=== PATIENT | male | born 1975 | race Caucasian/White ===

== ENCOUNTER 2020-08-11 21:25 | Emergency (ER) | payer SELFPAY ==
[2020-08-11 21:39] VITALS: BP 145/83
[2020-08-11] MEDS ORDERED: SULFAMETH/TRIMETH DS 800/160 MG TABLET PO STA (21:49)
[2020-08-11] MEDS ORDERED: BUFFERED LIDOCAINE 10 ML SYRINGE SUBQ STA (21:49)
[2020-08-11] MEDS ORDERED: CEPHALEXIN 250 MG Prepack 8 CAP BOTTLE PO STA (21:49)
--- NOTE | 2020-08-11 21:50 | ED Physician Documentation ---
PD HPI SKIN - Stated complaint Stated Complaint: LT SHOULDER SPIDER BITE - Chief complaint Chief Complaint: Wound - History obtained from History obtained from: Patient - Additional information Additional information: He developed what he thinks is a spider bite on the left arm last night and a lot of fluid came out when he was squeezing it. He describes it is green and white and red. And there is significant surrounding redness. No history of MRSA. No fevers. Review of Systems Constitutional: denies: Fever, Chills Nose: reports: Reviewed and negative Throat: reports: Reviewed and negative Cardiac: reports: Reviewed and negative PD PAST MEDICAL HISTORY - Present Medications Home Medications: Ambulatory Orders Medication Instructions Recorded Confirmed Cephalexin [Keflex] 500 mg PO Q6H #40 capsule 08/11/20 Sulfamethox/Trimeth 800/160 1 each PO BID #20 tablet 08/11/20 [Bactrim Ds 800/160] - Allergies Allergies/Adverse Reactions: Allergies Allergy/AdvReac Type Severity Reaction Status Date / Time No Known Drug Allergies Allergy Verified 08/11/20 21:38 PD ED PE NORMAL - Vitals Vital signs reviewed: Yes - General General: Alert and oriented X 3, No acute distress - HEENT HEENT: PERRL, EOMI - Neck Neck: Supple, no meningeal sign, No bony TTP - Cardiac Cardiac: RRR, No murmur - Derm Derm: Other (There is a cellulitis that is extensive on the anterior right bicep running from the glenohumeral joint almost down to the distal bicep. There is a swollen area at the top of it which upon bedside ultrasound does contain a small amount of residual fluid.) - Neuro Neuro: Alert and oriented X 3, Normal speech Results - Vitals Vitals: Vital Signs - 24 hr 08/11/20 21:32 Temperature 97.1 C H Heart Rate 92 Respiratory 20 Rate Blood Pressure 145/83 H O2 Saturation 96 Oxygen O2 Source Room air PD MEDICAL DECISION MAKING - ED course ED course: 45-year-old gentleman presents with left arm cellulitis, potentially incompletely drained abscess. He was numbed up after a prep and a needle aspiration was done. Could not really find any pus. A dressing was applied after a culture taken. Departure - Departure Disposition: 01 Home, Self Care Clinical Impression: Left arm cellulitis Condition: Good Record reviewed to determine appropriate education?: Yes Instructions: Cellulitis Dc Prescriptions: Sulfamethox/Trimeth 800/160 [Bactrim Ds 800/160] 1 each PO BID #20 tablet Cephalexin [Keflex] 500 mg PO Q6H #40 capsule Comments: We are performing a wound culture, the results should be done in 48-72 hours. If antibiotic change is necessary we will call you. Return if worse in the meantime, especially if you develop increased pain, fevers, cannot keep down the medication. Otherwise follow-up with your physician in approximately 2-3 days.
== END 2020-08-11 22:12 | disposition home or self-care (01) ==
LOC: ED 21:25
DX: L03.114 Cellulitis of left upper limb (principal); L02.414 Cutaneous abscess of left upper limb
CPT/HCPCS: 10160; 99282; 99283; A9270

== ENCOUNTER 2021-09-06 18:48 | Emergency (ER) | payer SELFPAY ==
[2021-09-06 19:00] VITALS: BP 151/100
--- NOTE | 2021-09-06 19:19 | ED Physician Documentation ---
PD HPI MAJOR TRAUMA - Stated complaint Stated Complaint: BODY INJ - Chief complaint Chief Complaint: Trauma Ch/Bk - History obtained from History obtained from: Patient - History of Present Illness Where injury occurred: Home Timing - onset: Enter time (1544), Today Quality of pain: Aching, Dull Symptoms improve with: Rest Worsens with: Movement, Palpation - Additional information Additional information: 46 year old male presents to ED with chief complaint of left flank, right knee, and right ankle pain after dropping a mobile jet ski dock on himself today approximately 4 hours ago. He reports holding the dock above his head when it b efraín to fall and he attempted to get out of the way when it crushed him. Within 10 minutes of the injury he began to taste blood but denies see active bleeding. He denies difficulty breathing or difficulty ambulating. He has not urinated since the injury but believes he can still void. Pain is described as a dull ache that is worse with movement or palpation. PD PAST MEDICAL HISTORY - Present Medications Home Medications: Ambulatory Orders Medication Instructions Recorded Confirmed Sulfamethox/Trimeth 800/160 1 each PO BID #20 tablet 08/11/20 [Bactrim Ds 800/160] cephALEXin [Keflex] 500 mg PO Q6H #40 capsule 08/11/20 - Allergies Allergies/Adverse Reactions: Allergies Allergy/AdvReac Type Severity Reaction Status Date / Time No Known Drug Allergies Allergy Verified 09/06/21 19:00 PD ED PE NORMAL - Vitals Vital signs reviewed: Yes - General General: Alert and oriented X 3, No acute distress - HEENT HEENT: PERRL, EOMI - Neck Neck: Supple, no meningeal sign, No bony TTP, C-Spine cleared by NEXUS criteria - Cardiac Cardiac: RRR, No murmur, Other (Mild TTP L lat/post ribs) - Respiratory Respiratory: No respiratory distress, Clear bilaterally - Back Back: No CVA TTP, No spinal TTP - Derm Derm: Normal color, Warm and dry - Extremities Extremities: Other (Right knee is nontender with full range of motion, Right ankle mildly tender over both malleoli) - Neuro Neuro: Alert and oriented X 3, Normal speech Results - Vitals Vitals: Vital Signs - 24 hr 09/06/21 18:53 Temperature 36.3 C L Heart Rate 77 Respiratory 18 Rate Blood Pressure 151/100 H O2 Saturation 96 Oxygen O2 Source Room air - Labs Labs: Laboratory Tests 09/06/21 19:52 Urine Color LIGHT YELLOW Urine Clarity CLEAR Urine pH 6.0 Ur Specific [place] <=1.005 Urine Protein NEGATIVE Urine Glucose (UA) NEGATIVE Urine Ketones NEGATIVE Urine Occult Blood NEGATIVE Urine Nitrite NEGATIVE Urine Bilirubin NEGATIVE Urine Urobilinogen 0.2 (NORMAL) Ur Leukocyte Esterase NEGATIVE Ur Microscopic Review NOT INDICATED Urine Culture Comments NOT INDICATED PD MEDICAL DECISION MAKING - ED course ED course: 46-year-old gentleman had a heavy object fall on him but his examination is underwhelming and relevant x-rays are negative. He declined pain medication. Departure - Departure Disposition: Home, Self Care Clinical Impression: Contusion of chest wall Qualifiers: Encounter type: initial encounter Contusion of right ankle Qualifiers: Encounter type: initial encounter Qualified Code(s): S90.01XA - Contusion of r ight ankle, initial encounter Contusion of right knee Qualifiers: Encounter type: initial encounter Qualified Code(s): S80.01XA - Contusion of right knee, initial encounter Condition: Good Record reviewed to determine appropriate education?: Yes Instructions: ED Contusion Soft Tissue, ED Contusion Chest Wall Comments: Tylenol and/or ibuprofen as needed for pain, return for new or worsening symptoms. Follow-up with your doctor in a week if not improved. Discharge Date/Time: 09/06/21 20:14
--- NOTE | 2021-09-06 19:50 | XRAY Report ---
PROCEDURE: Ankle 3 View RT INDICATIONS: ankle inj TECHNIQUE: 4 views of the ankle were acquired. COMPARISON: None FINDINGS: Bones: No fractures or dislocations. Ankle mortise is normally aligned. No suspicious bony lesions . Soft tissues: No tibiotalar joint effusion. Achilles tendon appears normal. Moderate soft tissue s welling overlying the lateral malleolus. IMPRESSION: Moderate lateral malleolus soft tissue swelling without acute fracture or dislocation. If there is persistent clinical concern for a radiographically occult fracture, recommend immobilizat ion and repeat imaging in 10 to 14 days. Reviewed by: Rei James MD on 09/06/2021 7:48 PM PST Approved by: Rei James MD on 09/06/2021 7:48 PM PST Station ID: [id number]
--- NOTE | 2021-09-06 19:51 | XRAY Report ---
PROCEDURE: Ribs w/PA Chest LT INDICATIONS: chest inj TECHNIQUE: 2 views of the left ribs were acquired, along with a single view chest. COMPARISON: None. FINDINGS: Surgical changes and devices: None. Bones and chest wall: No fractures or dislocations. No suspicious bony lesions. Overlying soft tis sues appear unremarkable. Lungs and pleura: No pleural effusions or pneumothorax. Lungs appear clear. Mediastinum: Mediastinal contours appear normal. Heart size is normal. IMPRESSION: Chest without acute cardiopulmonary abnormalities. No acute rib fractures identified. Reviewed by: Rei James MD on 09/06/2021 7:50 PM PST Approved by: Rei James MD on 09/06/2021 7:50 PM PST Station ID: [id number]
[2021-09-06 20:00] LABS: BILIRUBIN,URINE NEGATIVE (NEGATIVE); GLUCOSE, URINE (UA) NEGATIVE (NEGATIVE); KETONES,URINE (UA) NEGATIVE (NEGATIVE); LEUKOCYTE ESTERASE, URINE NEGATIVE (NEGATIVE); NITRITE,URINE NEGATIVE (NEGATIVE); OCCULT BLOOD,URINE NEGATIVE (NEGATIVE); PROTEIN,URINE NEGATIVE (NEGATIVE); UROBILINOGEN,URINE 0.2 (NORMAL) E.U./dL (NORMAL)
[2021-09-06 20:01] LABS: CLARITY,URINE CLEAR (CLEAR)
== END 2021-09-06 20:14 | disposition home or self-care (01) ==
LOC: ED 18:48
DX: S20.212A Contusion of left front wall of thorax, initial encounter (principal); S80.01XA Contusion of right knee, initial encounter; S90.01XA Contusion of right ankle, initial encounter; W20.8XXA Other cause of strike by thrown, projected or falling object, initial encounter; Y93.89 Activity, other specified
CPT/HCPCS: 81001; 81003; 87086; 99282; 99284